=== PATIENT | female | born 1990 | race Caucasian/White ===

== ENCOUNTER 2019-02-21 05:43 | Inpatient (IN) | payer MEDICAID ==
[2019-02-21] MEDS ORDERED: LACTATED RINGER'S 1,000 ML IV (06:11)
[2019-02-21 06:29] LABS: ADD MAN DIFF? NO
[2019-02-21] MEDS ORDERED: CARBOPROST 250 MCG INJ IM ×2 (06:30→14:00)
[2019-02-21] MEDS ORDERED: METHYLERGONOVINE 0.2 MG INJ IM ×2 (06:30→14:00)
[2019-02-21] MEDS ORDERED: OXYTOCIN 30 UNITS/LR 500 ML IV ×2 (06:30→14:00)
[2019-02-21] MEDS ORDERED: CEFAZOLIN 2 GM/50 ML (PMX) 50 ML IVPB (06:30)
[2019-02-21] MEDS ORDERED: MISOPROSTOL 200 MCG TAB PR ×2 (06:30→14:00)
[2019-02-21] MEDS: LACTATED RINGER'S 1,000 ML IV ×2 (06:34→13:41)
[2019-02-21 06:45] LABS: BASOPHILS % 0.5 % (0.0-2.0); EOSINOPHILS # 0.2 10^3/ul (0.0-0.5); EOSINOPHILS % 1.9 % (0.0-7.0); HEMATOCRIT 38.2 % (37.0-47.0); LYMPHOCYTES # 2.5 10^3/ul (0.8-2.9); LYMPHOCYTES % 30.7 % (15.0-51.0); MEAN CORPUSCULAR HEMOGLOBIN 31.5 pg (29.0-33.0); MEAN CORPUSCULAR VOLUME 92.5 fl (82.0-101.0); MEAN PLATELET VOLUME 11.6 fl (7.4-10.4); MONOCYTE # 0.7 10^3/ul (0.3-0.9); NEUTROPHIL # 4.6 10^3/ul (1.6-7.5); NEUTROPHILS % 57.5 % (39.0-77.0); PLATELET COUNT 238 10^3/UL (140-415); RED BLOOD COUNT 4.13 10^6/ul (4.20-5.40); RED CELL DISTRIBUTION WIDTH 13.2 % (11.5-14.5)
[2019-02-21 07:01] LABS: GLUCOSE 95 mg/dl (70-220)
[2019-02-21 07:03] LABS: INR 0.94; PROTIME 12.7 Sec (11.9-14.9)
[2019-02-21 07:04] LABS: PARTIAL THROMBOPLASTIN TIME 28.9 Sec (23.0-35.0)
[2019-02-21] MEDS ORDERED: morphine SULFATE/PF (10 MG/10 ML) INJ (07:24)
[2019-02-21] MEDS ORDERED: FENTAnyl 50 MCG/ML VIAL (07:24)
[2019-02-21 07:34] LABS: HEPATITIS B SURFACE ANTIGEN NEGATIVE (NEGATIVE)
[2019-02-21] MEDS ORDERED: DEXAMETHASONE 4 MG/ML 1 ML INJ (07:56)
[2019-02-21] MEDS ORDERED: ONDANSETRON 4 MG INJ (07:56)
[2019-02-21] MEDS ORDERED: PHENYLephrine (100 MCG/ML) 10ML SYG (08:23)
[2019-02-21] MEDS ORDERED: NALOXONE (0.4 MG/ML) INJ IV (08:30)
[2019-02-21] MEDS ORDERED: HYDROmorphONE 0.5 MG/0.5 ML SYG IV ×2 (08:30)
[2019-02-21] MEDS ORDERED: ZOLPIDEM 5 MG TAB PO (08:30)
[2019-02-21] MEDS ORDERED: ONDANSETRON 4 MG INJ IV (08:30)
[2019-02-21] MEDS ORDERED: DIPHENHYDRAMINE 50 MG INJ IV (08:30)
[2019-02-21] MEDS: OXYTOCIN 30 UNITS/LR 500 ML IV ×3 (08:59→23:13)
[2019-02-21] MEDS ORDERED: MIDAZOLAM 1 MG/ML 2 ML INJ (10:38)
[2019-02-21] MEDS: KETOROLAC 30 MG INJ IV ×2 (11:21→17:21)
[2019-02-21] MEDS: LANOLIN HPA 1 PKT TOP (13:55)
[2019-02-21] MEDS ORDERED: NACL 0.9% 3 ML SYG IV (14:00)
[2019-02-21 19:24] LABS: RAPID PLASMA REAGIN NONREACTIVE (NR)
[2019-02-22] MEDS: KETOROLAC 30 MG INJ IV (02:57)
[2019-02-22 05:03] LABS: ADD MAN DIFF? NO
[2019-02-22 05:13] LABS: WHITE BLOOD COUNT 10.3 10^3/ul (4.8-10.8)
[2019-02-22 05:13] LABS: BASOPHILS % 0.4 % (0.0-2.0); EOSINOPHILS # 0.1 10^3/ul (0.0-0.5); EOSINOPHILS % 0.8 % (0.0-7.0); HEMATOCRIT 33.9 % (37.0-47.0); HEMOGLOBIN 11.5 g/dl (12.0-16.0); LYMPHOCYTES # 2.8 10^3/ul (0.8-2.9); LYMPHOCYTES % 26.8 % (15.0-51.0); MEAN CORPUSCULAR HEMOGLOBIN 31.5 pg (29.0-33.0); MEAN CORPUSCULAR HGB CONC 33.9 g/dl (32.0-37.0); MEAN CORPUSCULAR VOLUME 92.9 fl (82.0-101.0); MEAN PLATELET VOLUME 11.7 fl (7.4-10.4); MONOCYTES % 10.1 % (0.0-11.0); NEUTROPHIL # 6.3 10^3/ul (1.6-7.5); NEUTROPHILS % 61.5 % (39.0-77.0); PLATELET COUNT 199 10^3/UL (140-415); RED BLOOD COUNT 3.65 10^6/ul (4.20-5.40); RED CELL DISTRIBUTION WIDTH 13.1 % (11.5-14.5)
[2019-02-22] MEDS: HYDROCODONE/APAP (5/325) TAB PO ×2 (10:19→18:06)
[2019-02-22] MEDS: IBUPROFEN 800 MG TAB PO ×2 (13:38→21:58)
[2019-02-23] MEDS: HYDROCODONE/APAP (5/325) TAB PO ×4 (04:43→18:45)
[2019-02-23] MEDS: IBUPROFEN 800 MG TAB PO ×3 (06:29→21:57)
[2019-02-24] MEDS: NA PHOSPHATE/BIPHOS 133 ML ENEMA PR (02:17)
[2019-02-24] MEDS: IBUPROFEN 800 MG TAB PO ×2 (05:30→13:43)
[2019-02-24] MEDS: HYDROCODONE/APAP (5/325) TAB PO ×2 (07:25→11:20)
[2019-02-24] MEDS: MEASLES,MUMPS,RUBELLA VACCINE INJ SC* (09:00)
[2019-02-24] MEDS: DIPHTH/TET/ACEL PERTUSS (ADULT) 0.5 ML VIAL IM* (09:00)
== END 2019-02-24 19:30 | disposition home or self-care (01) | DRG 788 ==
LOC: L-D 05:43 → MS1 12:47
PROVIDERS: Obstetrics & Gynecology
PROC: 10D00Z1 Extraction of Products of Conception, Low, Open Approach (ICD-10-PCS; principal; 2019-02-21 07:30)
PROC: 3E033VJ Introduction of Other Hormone into Peripheral Vein, Percutaneous Approach (ICD-10-PCS; 2019-02-21 07:30)
DX: O65.5 Obstructed labor due to abnormality of maternal pelvic organs (principal); O34.211 Maternal care for low transverse scar from previous cesarean delivery; Z3A.39 39 weeks gestation of pregnancy; Z37.0 Single live birth
CPT/HCPCS: 82947; 85025; 85610; 85730; 86592; 86850; 86900; 86901; 87340; 90715; 99464